=== PATIENT | female | born 1990 | race Caucasian/White ===

== ENCOUNTER 2019-02-19 09:03 | Outpatient (CLI) | payer BC, OTHER ==
[~2019-02-19] VITALS: Ht 154.9 cm; Wt 66.1 kg
[~2019-02-19 09:03] MED LIST: IBUP-1561 PO
[2019-02-19 09:16] VITALS: BP 110/61; PULSE 73; RESP 18
[2019-02-19 09:17] VITALS: Ht 154.9 cm; Wt 66.1 kg
--- NOTE | 2019-02-19 13:30 | TRIAGE ---
OB Triage Datetime Report Generated by CPN: 02/19/2019 13:30 Datetime: 02/19/2019 13:25 Stage of : OB Triage Datetime: 02/19/2019 13:20 Stage of : OB Triage Vaginal Exam Dilatation (cms): 1.5 Effacement (%): 50 Station: -2 Exam By: KHEMANI Membrane Status: Intact Vaginal Bleeding: None Datetime: 02/19/2019 11:12 Vaginal Exam Dilatation (cms): 1.5 Effacement (%): 50 Station: -2 Exam By: KHEMANI Vaginal Bleeding: Scant Cervix, Consistency: Moderate Cervix, Position: Midposition Presentation 'A': Cephalic Datetime: 02/19/2019 11:00 Stage of : OB Triage Maternal Assessment Level of Consciousness: Keenly Alert, Responsive Labor Evaluation Frequency: 1uc/hr Monitor Mode: External Duration (sec)2399: 70 Quality: Moderate Resting Tone [place]: Relaxed Heart Rate FHR Baseline Rate: 135 Monitor Mode: External US Variability: Moderate 6-25 bpm Accelerations: 15X15 Decelerations: None Category: Category I Pain Assessment Pain Scale: 6 Pain Presence: Intermittent Pain Type: Cramping Pain Location: Abdomen Pain Goal: 3 Membrane Status: Intact Vaginal Bleeding: None Datetime: 02/19/2019 10:00 Stage of : OB Triage Maternal Assessment Level of Consciousness: Keenly Alert, Responsive Labor Evaluation Frequency: 5uc/hr Monitor Mode: External Duration (sec)2399: 50-90 Quality: Moderate Resting Tone [place]: Relaxed Heart Rate FHR Baseline Rate: 135 Monitor Mode: External US Variability: Moderate 6-25 bpm Accelerations: 15X15 Decelerations: None Pain Assessment Pain Scale: 6 Pain Presence: Intermittent Pain Type: Cramping Pain Location: Abdomen Pain Goal: 3 Membrane Status: Intact Vaginal Bleeding: None Datetime: 02/19/2019 09:13 Assessment Type: Triage Maternal Assessment Level of Consciousness: Keenly Alert, Responsive DTR's/Clonus: DTRs 2+; No Clonus Headache: Denies Blurred Vision: No Respiratory Effort: Unlabored; Regular Rhythm; Equal Expansion Breath Sounds, Left: Clear and Equal Breath Sounds, Right: Clear and Equal Nausea/Vomiting: Denies RUQ Epigastric Pain: Denies Lower Extremities Edema: None Degree: None Upper Extremities Edema: None Degree: None Facial Edema: None Fall Risk Assessment History of Falling: (0) No Secondary Diagnosis: (0) No Ambulatory Aid: (0) Bedrest/Nurse Assist IV Therapy: (0) No Gait: (0) Normal/Bedrest/Immobile Mental Status: (0) Oriented to Own Ability Fall Score: 0 Fall Risk Score Definition: No Risk: No action required Datetime: 02/19/2019 09:11 Time of Arrival: 02/19/2019 08:59 EGA: 38.4 Arrived By: Ambulatory Arrived From: Home Chief Complaint: PT. HERE C/O SPOTTING AND UC'S. Movement: Present Contractions: Irregular Rupture of Membranes: Denies Vaginal Bleeding: Scant Vaginal Discharge: Denies Recent Sexual Intercouse: Denies Abdominal Trauma: Not Applicable Patient Complaints: Contractions; Cramping; Back Pain Time Provider Notified: 02/19/2019 11:23 Provider Notified: ANDRES Initial Plan: BPP/SVE Datetime: 02/19/2019 09:08 Monitor Mode: External Monitor Mode: External US
--- NOTE | 2019-02-19 13:36 | PN ---
Triage Information Date/Time Reason for visit: Vaginal spotting Weeks of Gestation 38 weeks and 4 days /Para -0-5-2 Diabetes: none Hypertention: none Objective Vital Signs Date Temp Pulse Resp B/P (MAP) Pulse Ox O2 O2 Flow FiO2 Time Delivery Rate 02/19/19 97.6 73 18 110/61 Room Air 09:16 (77) Heart Rate: 140's Contractions: None Disposition: Discharge Assessment/Plan 28 years old -0-5-2 at 38 weeks and 4 days complaining of decreased movement. She denies nausea, vomiting, shortness of breath, chest pain, headache, visual changes, vaginal bleeding or LOF. -FHR: No sign of metabolic acidosis- Category I -Contractions: None -She felt multiple movement during triage observation -SVE:/-3/ceph/intact. No cx changes in 2 hrs -Ultrasound performed: Normal JILLIAN, BPP 8 out of 8 -Symptoms and sign of labor, preeclampsia, kick count discussed with patient, she voiced understanding. All of her questions answered. -Patient was discharged home in stable condition with the appropriate discharge instructions provided. I would like patient to have close follow-up with her primary physician or outpatient clinic in 1-2 days or return to triage for worsening symptoms or any other urgent concerns. MELY HARPER Feb 19, 2019 13:36
== END 2019-02-19 13:25 | disposition home or self-care (01) ==
LOC: OBT 09:03 → L-D 09:03 → OBT 13:25
PROVIDERS: ATTEND Specialist
DX: O26.853 Spotting complicating pregnancy, third trimester (principal); Z3A.38 38 weeks gestation of pregnancy
CPT/HCPCS: 76818; Z7500; G0463

== ENCOUNTER 2019-02-19 23:10 | Inpatient (IN) | payer OTHER ==
[~2019-02-19] VITALS: Ht 154.9 cm; Wt 66.3 kg
[2019-02-20 00:40] VITALS: Ht 154.9 cm; Wt 66.3 kg
[2019-02-20 00:41] VITALS: BP 114/60; PULSE 85; RESP 18
[2019-02-20] MEDS: LACTATED RINGER'S 1,000 ML IV SCH ×7 (00:45→23:55)
[2019-02-20] MEDS ORDERED: LACTATED RINGER'S 1,000 ML IV PRN ×2 (00:47→01:29)
[2019-02-20] MEDS ORDERED: METHYLERGONOVINE 0.2 MG INJ IM PRN (01:00)
[2019-02-20] MEDS ORDERED: OXYTOCIN 30 UNITS/LR 500 ML IV SCH ×2 (01:00)
[2019-02-20] MEDS ORDERED: LIDOCAINE 1% (MPF) 30 ML INJ INJ PRN (01:00)
[2019-02-20] MEDS ORDERED: BUTORPHANOL 2 MG INJ IV PRN (01:00)
[2019-02-20] MEDS ORDERED: MISOPROSTOL 200 MCG TAB PR PRN ×2 (01:00→09:30)
[2019-02-20] MEDS ORDERED: CARBOPROST 250 MCG INJ IM PRN ×2 (01:00→09:30)
[2019-02-20] MEDS ORDERED: OXYTOCIN 30 UNITS/LR 500 ML IV PRN ×2 (01:00→09:30)
[2019-02-20] MEDS ORDERED: IBUPROFEN 600 MG TAB PO PRN (01:00)
[2019-02-20] MEDS ORDERED: FENTAnyl 2MCG/ML-ROPIV 0.2% 100 ML ONE (02:21)
--- NOTE | 2019-02-20 02:33 | PREAC ---
Date/Time of Note Date/Time of Note DATE: 02/20/19 TIME: 02:32 Anesthesia Eval and Record Evaluation Time Pre-Procedure Interview DATE: 02/20/19 TIME: 02:32 Age 28 Sex female NPO: 8 hrs Preoperative diagnosis Labor Pain Planned procedure Labor Epidural Past Medical History Past Medical History: Includes Heme: Anemia : : (8), Para: (3), Gestational age: (38) Surgery & Anesthesia Issues No known issue Meds Anticoagulation: No Beta Loni within 24 hr: No Reason Beta Loni not given: Pt. not on B-Loni Discontinued Scripts Ibuprofen* (Motrin*) 400 Mg Tab, 400 MG PO Q6H PRN for PAIN AND OR ELEVATED TEMP, #30 TAB Prov:JOSE CHIANG CLAY PRESS OPERATOR 05/08/16 Current Medications Lactated Ringer's 1,000 ml @ 125 mls/hr Q8H IV Last administered on 02/20/19at 00:45; Admin Dose 125 MLS/HR; Start 02/19/19 at 23:55 Lactated Ringer's 1,000 ml @ 125 mls/hr Q8H IV ; Start 02/20/19 at 00:47 Butorphanol Tartrate (Stadol) 2 mg Q2H PRN IV .PAIN SCALE 6-10; Start 02/20/19 at 01:00 Lidocaine (Xylocaine 1% (Mpf)) 30 ml ONCE PRN INJ .EPISIOTOMY; Start 02/20/19 at 01:00 Oxytocin/Lactated Ringer's 500 ml @ 500 mls/hr ONCE POST IV ; Start 02/20/19 at 01:00 Oxytocin/Lactated Ringer's 500 ml @ 125 mls/hr POST IV ; Start 02/20/19 at 01:00 Ibuprofen (Motrin) 600 mg ONCE PRN PO .PAIN 1-5; Start 02/20/19 at 01:00 Lactated Ringer's 1,000 ml @ 2,000 mls/hr Q30M PRN IV .ANESTHESIA Last administered on 02/20/19at 02:18; Admin Dose 2,000 MLS/HR; Start 02/20/19 at 00:47 Oxytocin/Lactated Ringer's 500 ml @ 0 mls/hr ONCE PRN IV .VAGINAL BLEEDING; Start 02/20/19 at 01:00 Methylergonovine Maleate (Methergine) 0.2 mg ONCE PRN IM .VAGINAL BLEEDING; Start 02/20/19 at 01:00 Carboprost Tromethamine (Hemabate) 250 mcg ONCE PRN IM .VAGINAL BLEEDING; Start 02/20/19 at 01:00 Misoprostol (Cytotec) 1,000 mcg ONCE PRN CA .VAGINAL BLEEDING; Start 02/20/19 at 01:00 Lactated Ringer's 1,000 ml @ 2,000 mls/hr Q30M PRN IV .ANESTHESIA; Start 02/20/19 at 01:29 Meds reviewed: Yes Allergies Coded Allergies: latex (Verified Allergy, Intermediate, RASH, 02/20/19) peach (Verified Allergy, Intermediate, SWELLING, 02/20/19) Allergies Reviewed: Yes Labs/Studies Labs Reviewed: Reviewed by anesthesiologist Result Diagram: 02/20/19 0030 Laboratory Tests 02/20/19 00:30 test: Positive Studies: ECG (n/a), CXR (n/a) Pre-procedure Exam Last vitals Vital Signs Date Temp Pulse Resp B/P (MAP) Pulse Ox O2 O2 Flow FiO2 Time Delivery Rate 02/20/19 97.7 85 18 114/60 Room Air 00:41 (78) Airway: Adequate mouth opening, Adequate thyromental dist Mallampati: Mallampati II Teeth: Normal Lung: Normal Heart: Normal ASA Physical Status ASA physical status: 2 Emergency: None Planned Anesthetic Neuraxial: Epidural Planned Pain Management Epidural Pre-operative Attestations Prior to commencing anesthesia and surgery, the patient was re-evaluated, there was verification of: *The patient's identity *The results of appropriate recent lab work and preoperative vital signs *The above evaluation not changing prior to induction *Anesthetic plan, risk benefits, alternative and complications discussed with patient/family; questions answered; patient/family understands, accepts and wishes to proceed. JUAN SCHMID MD Feb 20, 2019 02:33
--- NOTE | 2019-02-20 02:34 | PAC ---
Date/Time of Note Date/Time of Note DATE: 02/20/19 TIME: 02:34 Post-Anesthesia Notes Post-Anesthesia Note Last documented vital signs Vital Signs Date Temp Pulse Resp B/P (MAP) Pulse Ox O2 O2 Flow FiO2 Time Delivery Rate 02/20/19 97.7 85 18 114/60 98 Room Air 02:31 (78) Activity: WNL Respiratory function: WNL Cardiovascular function: WNL Mental status: Baseline Pain reasonably controlled: Yes Hydration appropriate: Yes Nausea/Vomiting absent: Yes JUAN SCHMID MD Feb 20, 2019 02:34
--- NOTE | 2019-02-20 02:56 | TRIAGE ---
OB Triage Datetime Report Generated by CPN: 02/20/2019 02:56 Datetime: 02/20/2019 02:41 Level of Consciousness: Not alert, Arousable Pain Scale: 0 Pain Presence: None/Denies Pain Type: N/A Dilatation (cms): 3.0 Effacement (%): 80 Station: -2 Datetime: 02/20/2019 02:27 Pain Scale: 4 Pain Presence: Intermittent Pain Type: Contraction Pain Location: Abdomen; Back Pain Goal: 0 Pain Relief Measures: Epidural Given; Comfort Measures Datetime: 02/20/2019 02:24 Level of Consciousness: Keenly Alert, Responsive Pain Scale: 5 Datetime: 02/20/2019 02:21 Pain Assessment Comments: PT STATES SHE DID NOT FEEL CURRENT UC Datetime: 02/20/2019 02:19 Monitor Mode: External Monitor Mode: External US Datetime: 02/20/2019 02:10 Pain Scale: 9 Datetime: 02/20/2019 01:40 Pain Presence: Intermittent Pain Type: Contraction Pain Location: Abdomen Pain Relief Measures: Comfort Measures Datetime: 02/20/2019 01:28 Interventions: IV Bolus Datetime: 02/20/2019 01:17 Assessment Type: Admission Assessment Vaginal Bleeding: None Level of Consciousness: Keenly Alert, Responsive DTR's/Clonus: DTRs 2+; No Clonus Headache: Frontal Blurred Vision: No Respiratory Effort: Unlabored; Regular Rhythm; Equal Expansion Breath Sounds, Left: Clear and Equal Breath Sounds, Right: Clear and Equal Nausea/Vomiting: Denies RUQ Epigastric Pain: Denies Lower Extremities Edema: None Degree: None Upper Extremities Edema: None Degree: None Facial Edema: None History of Falling: (0) No Secondary Diagnosis: (0) No Ambulatory Aid: (0) Bedrest/Nurse Assist IV Therapy: (20) Yes Gait: (0) Normal/Bedrest/Immobile Mental Status: (0) Oriented to Own Ability Fall Score: 20 Fall Risk Score Definition: No Risk: No action required Pain Scale: 8 Pain Presence: Intermittent Pain Type: Contraction Pain Location: Back Pain Goal: 0 Membrane Status: Intact Datetime: 02/20/2019 00:59 Stage of : Labor Frequency: 1-3.5 Monitor Mode: External Duration (sec)2399: 40-90 Quality: Moderate Pattern: Normal: <= 5 Contractions in 10 Minutes Resting Tone [place]: Relaxed FHR Baseline Rate: 130 Monitor Mode: External US Variability: Moderate 6-25 bpm Accelerations: 15X15 Decelerations: None Category: Category I Datetime: 02/20/2019 00:42 Monitor Mode: External Datetime: 02/20/2019 00:00 Frequency: 1-4 Monitor Mode: External Duration (sec)2399: 40-100 Quality: Moderate Pattern: Normal: <= 5 Contractions in 10 Minutes Resting Tone [place]: Relaxed FHR Baseline Rate: 125 Monitor Mode: External US Variability: Moderate 6-25 bpm Accelerations: 15X15 Decelerations: possible variable Datetime: 02/19/2019 23:49 Stage of : OB Triage Datetime: 02/19/2019 23:29 Stage of : OB Triage Datetime: 02/19/2019 23:12 Stage of : OB Triage Assessment Type: Triage Level of Consciousness: Keenly Alert, Responsive DTR's/Clonus: DTRs 2+; No Clonus Headache: Temporal; Bilateral; Frontal Blurred Vision: No Respiratory Effort: Unlabored; Regular Rhythm; Equal Expansion Breath Sounds, Left: Clear and Equal Breath Sounds, Right: Clear and Equal Nausea/Vomiting: Present (Annotations: Nausea only) RUQ Epigastric Pain: Denies Lower Extremities Edema: None Degree: None Upper Extremities Edema: None Degree: None Facial Edema: None Temperature Route: Oral History of Falling: (0) No Secondary Diagnosis: (0) No Ambulatory Aid: (0) Bedrest/Nurse Assist IV Therapy: (0) No Gait: (0) Normal/Bedrest/Immobile Mental Status: (0) Oriented to Own Ability Fall Score: 0 Fall Risk Score Definition: No Risk: No action required Pain Scale: 9 Pain Presence: Intermittent Pain Type: Cramping; Contraction; Pressure Pain Location: Abdomen; Back Pain Relief Measures: Comfort Measures Datetime: 02/19/2019 23:09 Stage of : OB Triage Monitor Mode: External Contraction Comments: [place] applied FHR Baseline Rate: 135 Monitor Mode: External US Comments: EFM applied Datetime: 02/19/2019 23:08 Stage of : OB Triage Dilatation (cms): 2.0 Effacement (%): 70 Station: -2 Exam By: IrmaRN Vaginal Bleeding: Scant (Annotations: brown discharge noted on glove) Cervix, Consistency: Moderate Cervix, Position: Posterior Datetime: 02/19/2019 23:06 Time of Arrival: 02/19/2019 23:06 EGA: 38.4 Arrived By: Wheelchair Arrived From: Home Chief Complaint: UCs q3-5mins, spotting Movement: Present Contractions: Regular Time Contractions Began: 02/19/2019 21:00 Contractions: q3-5mins Rupture of Membranes: Unsure Vaginal Bleeding: Small Vaginal Discharge: Present Abdominal Trauma: Not Applicable Patient Complaints: Contractions; Cramping; Back Pain Additional Patient Complaints: Pt here earlier in the day with uc's. States was 1.5cm. Pt writhing in pain, sitting sideways in wheelchair. Time Provider Notified: 02/19/2019 23:49 Provider Notified: Initial Plan: Monitor, VE Datetime: 02/19/2019 12:00 Stage of : OB Triage Level of Consciousness: Keenly Alert, Responsive Frequency: OCCASIONAL Monitor Mode: External Duration (sec)2399: 30-60 Quality: Moderate Resting Tone [place]: Relaxed FHR Baseline Rate: 135 Monitor Mode: External US Variability: Moderate 6-25 bpm Accelerations: 15X15 Decelerations: None Category: Category I Pain Scale: 6 Pain Presence: Intermittent Pain Type: Cramping Pain Location: Abdomen Pain Goal: 3 Membrane Status: Intact Vaginal Bleeding: None Datetime: 02/19/2019 09:13 Fall Score: 0 Fall Risk Score Definition: No Risk: No action required
[2019-02-20] MEDS ORDERED: EPHEDrine 25 MG/5 ML SYG IV PRN (03:00)
[2019-02-20] MEDS ORDERED: NALOXONE (0.4 MG/ML) INJ IV PRN ×2 (03:00)
[2019-02-20] MEDS ORDERED: FENTAnyl 2MCG/ML-ROPIV 0.2% 100 ML BAG EPI SCH (03:00)
--- NOTE | 2019-02-20 07:04 | HP ---
Date/Time of Note Date/Time of Note DATE: 02/20/19 TIME: 06:57 OB - History Hx of Present Free Text/Dictation February 20, 2019 Estimated Due Date: Jan 30, 2019 : 8 Para: 2 Care: Good Care Other Concerns: 28-year-old G8, P2 with IUP at 40 weeks and care with [facility] presented in labor. Patient was here yesterday and was noted to have false labor and discharged and presented now in active labo SHAHRZAD March 01, 2019 Patient was noted to have severe anemia. Hemoglobin 7.6. She is asymptomatic.Her base line Hb in earlier was 10 Reports history of anemia, but non compliant with taking iron pills. Denies any vaginal bleeding in early pregnnacy Past Family/Social History * Past Medical, Surgical, Family and Obstetric Histories reviewed from chart. Blood Type: A+ Rubella: immune RPR/VDRL: Negative GBS Status: Negative HBsAG: Negative OB Admission Exam Vital Signs Vital Signs Vital Signs Date Temp Pulse Resp B/P (MAP) Pulse Ox O2 O2 Flow FiO2 Time Delivery Rate 02/20/19 97.7 85 18 114/60 Room Air 00:41 (78) Physical Exam HEENT: WNL Lungs: Clear Abdomen: WNL Extremities: Normal Cervical Dilatation: 2cm Effacement: 75% Station: -2 Heart Rate: 130's Accelerations: Accelerations Present Varibility: Moderate Contractions on Admission: < 5 Minutes Apart Intensity: Moderate Last 72 hours Lab Results CBC & BMP 02/20/19 00:30 OB Assessment/Plan Other Assessment: IUP at 40 weeks History of anemia, was noncompliant with taking iron pills. Now hemoglobin lower at 7.5 however patient is asymptomatic GBS negative Early labor Admit the patient for labor management Anticipate Type and screen, CBC Consider blood transfusion if hemoglobin lower and patient is sympto matic Epidural for pain control with the patient needs ALYSE BRITT MD Feb 20, 2019 07:04
--- NOTE | 2019-02-20 09:06 | LDN ---
Date/Time of Note Date/Time of Note DATE: 02/20/19 TIME: 09:04 Delivery Summary 28 YO with IUP at 38.5 weeks with EDC 03/01/2019 s/p of viable male . After delivery of the head the rest of the body delivered easily. I did not apply excessive traction. Placenta delivered spontaneously and intact. evaluation of the placenta confirmed intact placenta. Uterus was firm with cervix closed on exam. no lacerations.Desires permanent sterilization surgery Placenta Delivered: Spontaneously Meconium: none Episiotomy: No Anesthesia type: Epidural Estimated blood loss: 300 Sponge & Needle done & correct: Yes All needle counts correct: Yes Any foreign bodies felt in the: No Delivery Information Sex Infant Sex: male Apgars 1 Minute: 8 5 Minute: 9 Suctioning Nose & mouth suctioned at ajith: No Delee suction performed: No Umbilical Cord Umbilical cord with: 3 Vessels Cord presentations: no nuchal cord Nuchal cord present X: 0 Cord Blood was obtained: Yes Mother & Baby Disposition Disposition Mom & Baby to Maternity; Good: Yes BAYLEE CAMPOS MD Feb 20, 2019 09:06
[2019-02-20] MEDS ORDERED: MAGNESIUM HYDROXIDE 30ML CUP PO PRN (09:30)
[2019-02-20] MEDS ORDERED: HYDROCODONE/APAP (5/325) TAB PO PRN ×2 (09:30)
[2019-02-20] MEDS ORDERED: SENNA/DOCUSATE NA (8.6MG/50MG) TAB PO PRN (09:30)
[2019-02-20] MEDS ORDERED: ONDANSETRON 4 MG INJ IV PRN (09:30)
[2019-02-20] MEDS ORDERED: WITCH HAZEL/GLYCERIN PAD PR PRN (09:30)
[2019-02-20] MEDS ORDERED: DIPHENHYDRAMINE 50 MG INJ IV PRN (09:30)
[2019-02-20] MEDS ORDERED: ONDANSETRON 4 MG TAB PO PRN (09:30)
[2019-02-20] MEDS ORDERED: NA PHOSPHATE/BIPHOS 133 ML ENEMA PR PRN (09:30)
[2019-02-20] MEDS ORDERED: BENZOCAINE 20% 56 ML SPRAY TOP PRN (09:30)
[2019-02-20] MEDS ORDERED: DIBUCAINE 1% 30 GM OINT TOP PRN (09:30)
[2019-02-20] MEDS ORDERED: DIPHENHYDRAMINE 25 MG CAP PO PRN (09:30)
[2019-02-20 10:10] VITALS: BP 123/57; PULSE 88; RESP 18
[2019-02-20 11:00] VITALS: BP 107/56; RESP 88
[2019-02-20] MEDS: IBUPROFEN 600 MG TAB PO SCH ×3 (12:42→23:39)
[2019-02-20] MEDS: LANOLIN HPA 1 PKT TOP PRN (12:43)
[2019-02-20] MEDS: LACTATED RINGER'S 1,000 ML IV* SCH ×2 (12:44→17:02)
[2019-02-20 16:00] VITALS: BP 109/51; PULSE 85; RESP 17
[2019-02-20 16:11] VITALS: BP 109/51; PULSE 85; RESP 18
[2019-02-20 19:40] VITALS: BP 117/58; PULSE 82; RESP 18
[2019-02-20] MEDS: SENNA/DOCUSATE NA (8.6MG/50MG) TAB PO SCH (20:57)
[2019-02-21] VITALS: BP 116/56; PULSE 84; RESP 18
[2019-02-21] MEDS: LACTATED RINGER'S 1,000 ML IV SCH (00:47)
[2019-02-21] MEDS: LACTATED RINGER'S 1,000 ML IV* SCH ×2 (01:02→09:02)
[2019-02-21 04:05] VITALS: BP 113/61; PULSE 71; RESP 18
[2019-02-21] MEDS: IBUPROFEN 600 MG TAB PO SCH ×4 (06:00→23:46)
[2019-02-21 08:00] VITALS: BP 125/58; PULSE 71; RESP 20
[2019-02-21] MEDS: LANOLIN HPA 1 PKT TOP PRN (09:33)
[2019-02-21] MEDS: SENNA/DOCUSATE NA (8.6MG/50MG) TAB PO SCH ×2 (09:33→21:00)
[2019-02-21] MEDS: FERROUS SULFATE (EC) 325 MG TAB PO SCH ×3 (09:33→20:35)
--- NOTE | 2019-02-21 17:57 | DS ---
Date/Time of Note Date/Time of Note DATE: 02/21/19 TIME: 17:56 Obstetrical Discharge Record Final Diagnosis Final Diagnosis: Term delivered Vaginal Delivery Obstetrical Delivery: Spontaneous Complications Augmentation: No Induction: No Rupture of Membranes: No Condition on Discharge Physical Assessment Voiding: Yes Bowel Movement: Yes Breast: Soft, non-tender, Filling Fundus: Firm Abdomen and Incision: soft, not tender Calf Tenderness: No Patient Condition: Good BAYLEE CAMPOS MD Feb 21, 2019 17:57
[2019-02-21 18:01] VITALS: BP 115/58; PULSE 88; RESP 18
[2019-02-21 19:45] VITALS: BP 105/55; PULSE 79; RESP 18
[2019-02-22 03:34] VITALS: BP 104/57; PULSE 62; RESP 18
[2019-02-22] MEDS: IBUPROFEN 600 MG TAB PO SCH ×2 (05:40→12:26)
[2019-02-22 08:00] VITALS: BP 112/50; PULSE 73; RESP 18
[2019-02-22] MEDS ORDERED: VARICELLA VACCINE LIVE/PF 1,350 UNIT/0.5 ML ML SC* ONE (09:00)
[2019-02-22] MEDS ORDERED: MEASLES,MUMPS,RUBELLA VACCINE INJ SC* ONE (09:00)
[2019-02-22] MEDS: FERROUS SULFATE (EC) 325 MG TAB PO SCH ×2 (10:10→12:26)
[2019-02-22] MEDS: SENNA/DOCUSATE NA (8.6MG/50MG) TAB PO SCH (10:10)
--- NOTE | 2019-02-23 13:01 | DELSUM ---
Delivery Summary A-C Datetime Report Generated by N: 02/23/2019 13:01 DELIVERY PERSONNEL Coal Drier Operator: Cubil, Luciana MATERNAL INFORMATION Delivery Anesthesia: Epidural Medications in Delivery: PITOCIN 30 UNITS Delivery QBL (ml): 300 Placenta Cultured: No Maternal Complications: None LABOR SUMMARY EDC: 03/01/2019 00:00 No. Babies in Womb: 1 Attempted: No (Annotations: Data stored by [facility] on behalf of user) Labor Anesthesia: Epidural LABOR INFORMATION Reason for Induction: Not Applicable Onset of Labor: 02/19/2019 23:08 Complete Dilatation: 02/20/2019 08:02 Oxytocin: N/A Group B Beta Strep: Negative Antibiotics # of Doses: 0 (Annotations: Data stored by [facility] on behalf of user) Steroids Given: None Reason Steroids Not Administered: Not Applicable MEMBRANES Membranes Rupture Method: Artificial Rupture of Membranes: 02/20/2019 08:02 Length of Rupture (hr): 0.08 Amniotic Fluid Color: Clear Amniotic Fluid Amount: Moderate Amniotic Fluid Odor: None STAGES OF LABOR Stage 1 hr: 8 Stage 1 min: 54 Stage 2 hr: 0 Stage 2 min: 5 Stage 3 hr: 0 Stage 3 min: 8 Total Time in Labor hr: 9 Total Time in Labor min: 7 VAGINAL DELIVERY Episiotomy: None Laceration Extension: N/A Laceration Type: None Laceration Repair: Not Applicable Initial Vag Sponge Count: 10 Final Vag Sponge Count: 10 Initial Vag Sharps Count: 1 Final Vag Sharps Count: 1 Sponge Count Correct: Yes; Vaginal Sweep Performed Sharps Count Correct: Yes BABY A INFORMATION Infant Delivery Date/Time: 02/20/2019 08:07 Method of Delivery: Vaginal Born in Route : No : N/A Forceps: N/A Vacuum Extraction: N/A Shoulder Dystocia : No SHOULDER DYSTOCIA BABY A Infant Delivery Date/Time: 02/20/2019 08:07 PRESENTATION/POSITION BABY A Presentation: Cephalic Cephalic Presentation: Vertex Vertex Position: Left Occipital Anterior Breech Presentation: N/A PLACENTA INFORMATION BABY A Placenta Delivery Time : 02/20/2019 08:15 Placenta Method of Delivery: Spontaneous Placenta Status: Delivered SCORES BABY A Heart Rate 1 min: >100 bpm Resp Effort 1 min: Good Cry Reflex Irritability 1 min: Cough/Sneeze/Pulls Away Muscle Tone 1 min: Active Motion Color 1 min: Blue/Pale Resuscitation Effort 1 min: Tactile Stimulation SCORE 1 MIN: 8 Heart Rate 5 min: >100 bpm Resp Effort 5 min: Good Cry Reflex Irritability 5 min: Cough/Sneeze/Pulls Away Muscle Tone 5 min: Active Motion Color 5 min: Body [place], Extremit Blue Resuscitation Effort 5 min: Tactile Stimulation SCORE 5 MIN: 9 INFANT INFORMATION BABY A Gestational Age at Delivery: 38.5 Gestational Status: Early Term- 37- 38.6 Weeks Infant Outcome : Liveborn, with signs of life Condition : Stable Infant Sex: Male IDENTIFICATION/MEDS BABY A ID Band Number: [id number] ID Band Location: Right Leg; Left Arm Sensor Applied: Yes Sensor Number: [id number] Sensor Location : Cord Clamp Vitamin K Given : Not Given Erythromycin Given: Not Given WEIGHT/LENGTH BABY A Birthweight (gm): 3275 Weight (lb): 7 Weight (oz): 4 Infant Length (in): 19.25 Length (cm): 48.90 CORD INFORMATION BABY A No. Cord Vessels: 3 Nuchal Cord : N/A Cord Blood Taken: Yes Suction: Mouth; Nose ASSESSMENT BABY A Infant Complications: None Physical Findings at Delivery: Within Normal Limits Infant Respirations: Appears Normal Life Enrichment Manager/ALS Called : Yes Infant Care By: Gayathri JASSO RN Transferred To: Remains with Mother
== END 2019-02-22 13:00 | disposition home or self-care (01) | DRG 807 ==
LOC: OBT 23:10 → L-D 23:10 → OBT 23:49 → L-D 02-20 07:31 → PP1 02-20 10:07
PROVIDERS: ADMIT Specialist; ATTEND Specialist
PROC: 10E0XZZ Delivery of Products of Conception, External Approach (ICD-10-PCS; principal; 2019-02-20)
DX: O80 Encounter for full-term uncomplicated delivery (principal); Z37.0 Single live birth; Z3A.38 38 weeks gestation of pregnancy
CPT/HCPCS: 81001; 85025; 85610; 85730; 86592; 86850; 86900; 86901; 87340; 90716; G0463; J2590; J3010; J7120